=== PATIENT | male | born 1975 | race African-American/Black ===

== ENCOUNTER 2025-05-19 09:23 | Emergency (ER) | payer OTHER ==
[~2025-05-19] VITALS: Ht 188 cm; Wt 90.7 kg
[2025-05-19 09:23] VITALS: BP 154/90; PULSE 81; RESP 16; TEMP 98.7; O2SAT 100
[2025-05-19 09:58] VITALS: BP 125/90; PULSE 88; RESP 16; TEMP 98.7; O2SAT 100
[2025-05-19] MEDS ORDERED: SULF1TAB24 PO (10:02)
== END 2025-05-19 10:03 | disposition home or self-care (01) ==
LOC: ER 09:23
DX: L72.3 Sebaceous cyst (principal)
CPT/HCPCS: 10060; 99282